=== PATIENT | male | born 1975 | race Caucasian/White ===

== ENCOUNTER → 2019-08-30 | Outpatient (CLI) | payer BC | LOC: LAB 10:02 | DX: J02.9 Acute pharyngitis, unspecified (principal) ==

== ENCOUNTER 2021-05-07 08:04 | Emergency (ER) | payer OTHER ==
[~2021-05-07] VITALS: Ht 195.6 cm; Wt 113.6 kg
[2021-05-07] MEDS ORDERED: AZITHROMYCIN 250MGPK PO (09:16)
[2021-05-07] MEDS ORDERED: PROAIR HFA0.09 MG/AC IH (09:16)
[2021-05-07 09:50] VITALS: BP 118/85
== END 2021-05-07 09:53 | disposition home or self-care (01) ==
LOC: ED 08:04
DX: U07.1 COVID-19 (principal); Z88.1 Allergy status to other antibiotic agents

== ENCOUNTER 2023-06-01 00:11 | Emergency (ER) | payer BC ==
[~2023-06-01] VITALS: Ht 193 cm; Wt 132.9 kg
[~2023-06-01 00:11] MED LIST: AZITHROMYCIN 250MGPK PO; PROAIR HFA0.09 MG/AC IH
[2023-06-01 00:45] LABS: ALBUMIN 4.6 g/dL (3.5-5.0)
[2023-06-01 00:46] LABS: CALCIUM 9.6 mg/dL (8.3-10.5)
[2023-06-01 00:47] LABS: TOTAL PROTEIN 7.3 g/dL (6.4-8.3)
[2023-06-01 00:49] LABS: BASO # 0.03 K/mm3 (0.02-0.10); EOS # 0.25 K/mm3 (0.04-0.40); EOS % 3.2 % (0.0-4.0); HEMATOCRIT 43.5 % (42.0-52.0); HEMOGLOBIN 15.4 g/dL (13.5-18.0); LYMPH# 3.31 K/mm3 (1.50-4.00); MEAN CELL VOLUME 83 fl (78-100); MEAN CORPUSCULAR HEMOGLOBIN 29 pg (27-31); MEAN CORPUSCULAR HGB CONC 35 g/dL (33-37); MEAN PLATELET VOLUME 10.7 fl (7.4-10.4); MONO # 0.72 K/mm3 (0.20-0.80); NEU # 3.51 K/mm3 (1.40-6.50); PLATELET COUNT 231 K/mm3 (130-400); RED BLOOD COUNT 5.24 M/mm3 (4.20-5.60); RED CELL DISTRIBUTION WIDTH 12.1 % (11.5-14.5); TOTAL BILIRUBIN 1.5 mg/dL (0.2-1.2); WHITE BLOOD COUNT 7.8 K/mm3 (4.8-10.8)
[2023-06-01 01:01] LABS: TROPONIN-I 0.03 ng/mL (0.00-0.033)
[2023-06-01 01:14] LABS: D-DIMER 0.16 mg/L FEU (0.15-0.50)
[2023-06-01 03:19] LABS: PARTIAL THROMBOPLASTIN TIME 22.6 SECONDS (21.0-32.0)
[2023-06-01 03:22] LABS: PROTHROMBIN TIME 9.8 SECONDS (9.0-12.0)
[2023-06-01 05:00] VITALS: BP 148/106
== END 2023-06-01 05:00 | disposition short-term general hospital (02) ==
LOC: ED 00:11
PROVIDERS: Nurse Practitioner
DX: I21.4 Non-ST elevation (NSTEMI) myocardial infarction (principal); R11.2 Nausea with vomiting, unspecified; Z82.41 Family history of sudden cardiac death
CPT/HCPCS: J1644; J2270; J2305; J2405; J7030; Q9967

== ENCOUNTER → 2023-06-08 | Outpatient (CLI) | payer BC ==
[2023-06-08 08:41] LABS: HEMATOCRIT 45.9 % (42.0-52.0); HEMOGLOBIN 15.7 g/dL (13.5-18.0); MEAN PLATELET VOLUME 10.3 fl (7.4-10.4); RED BLOOD COUNT 5.5 M/mm3 (4.20-5.60); RED CELL DISTRIBUTION WIDTH 11.7 % (11.5-14.5); WHITE BLOOD COUNT 5.8 K/mm3 (4.8-10.8)
[2023-06-08 08:55] LABS: CALCIUM 9.6 mg/dL (8.3-10.5)
== END ==
LOC: LAB 08:30
PROVIDERS: Family Medicine
DX: I25.10 Atherosclerotic heart disease of native coronary artery without angina pectoris (principal)